=== PATIENT | male | born 1995 | race Caucasian/White ===

== ENCOUNTER 2017-07-25 11:42 | Emergency (ER) | payer OTHER ==
[2017-07-25 11:47] VITALS: BP 121/81; PULSE 90; RESP 16; TEMP 98.6; O2SAT 100
[2017-07-25] MEDS ORDERED: DEXAMETHASONE 4 MG TAB PO ONE (13:30)
[2017-07-25] MEDS ORDERED: IBUPROFEN 200 MG TAB PO ONE (13:30)
--- NOTE | 2017-07-25 13:49 | EDPHY ---
H & P Time Seen by Provider: 07/25/17 13:45 HPI/ROS: HPI: This is a 21-year-old male who presents with Chief Complaint:Sore throat Location: Throat Quality: Sore Duration: 4 days Signs and Symptoms: no Fever, no chills, no cough, no neck stiffness, + discomfort with swallowing, no runny nose, no abdominal pain, no nausea vomiting Timing: Sudden Severity: Moderate Context: This is a college student that presents with 4 days of sore throat accompanied by fatigue and discomfort with swallowing. Still able to drink fluids and soft. Denies any exposure to strep. Modifying Factors: Has not tried any [id number] medications Comment: ROS: Constitutional: No fever, no chills, no weight loss Eyes: No blurred vision Respiratory: No shortness of breath, no cough Cardiovascular: No chest pain Gastrointestinal: No nausea, no vomiting no diarrhea Genitourinary: No dysuria Extremities: No myalgias Neurologic: No weakness, no numbness Skin: No rashes Hematologic: No bruising, no bleeding MEDICAL/SURGICAL HISTORY: generally healthy. Leg fracture. Social History: College student. Smoking Status: Former smoker Physical Exam: CONSTITUTIONAL: Ill-appearing white teenage male, awake and alert, no obvious distress HEENT: Atraumatic and normocephalic, PERRL, EOMI. Tympanic membranes clear. Oropharynx clear, tonsils 2+ beefy red; no exudate; uvula midline and moist pink mucosa. Airway patent. + Spotty cervical lymphadenopathy. No meningismus. Cardiovascular: Normal S1/S2, regular rate, regular rhythm, without murmur rub or gallop. PULMONARY/CHEST: Symmetrical and nontender. Clear to auscultation bilaterally Good air movement. No accessory muscle usage. ABDOMEN: Soft, nondistended, nontender, no rebound, no guarding, no peritoneal signs, no masses or organomegaly. No CVAT. EXTREMITIES: 2/2 pulses, no deformities, no clubbing, no cyanosis or edema. NEUROLOGICAL: no focal neuro deficits. GCS 15. Speech clear. SKIN: Warm and dry, no erythema. no rash. Good capillary refill. Constitutional: Initial Vital Signs Temperature (C) 37 C 07/25/17 11:45 Heart Rate 90 07/25/17 11:45 Respiratory Rate 16 07/25/17 11:45 Blood Pressure 121/81 H 07/25/17 11:45 O2 Sat (%) 100 07/25/17 11:45 Allergies/Adverse Reactions: No Known Allergies Allergy (Unverified 07/25/17 11:47) Medical Decision Making ED Course/Re-evaluation: Strep test, mono, oral medications ordered No signs of tonsillar abscess/meningitis/airway compromise/Ludwigs angina/OM Given p.o. Decadron and p.o. ibuprofen [place] and strep were both negative; suspect viral Advised to continue supportive care Differential Diagnosis: Differential diagnosis includes but is not limited to viral pharyngitis, strep pharyngitis, meningitis, infectious mononucleosis, Upper respiratory infection - Data Points Laboratory Results: 07/25/17 07/25/17 07/25/17 Unknown 14:02 14:02 Monoscreen NEGATIVE (NEGATIVE) Group A Strep Screen NEGATIVE (NEGATIVE) Group A Strep DNA Pending Medications Given: Discontinued Medications Dexamethasone (Decadron) 4 mg PO EDNOW ONE Stop: 07/25/17 13:31 Last Admin: 07/25/17 14:00 Dose: 4 mg Ibuprofen (Motrin) 800 mg PO EDNOW ONE Stop: 07/25/17 13:31 Last Admin: 07/25/17 14:00 Dose: 800 mg Departure - Departure Disposition: Home, Routine, Self-Care Clinical Impression: Viral pharyngitis Condition: Good Instructions: Pharyngitis (ED) Additional Instructions: You do not have strep or mononucleosis. You have a viral illness. Continued to drink 6-8 glasses of water daily, perform salt water gargles several times a day for throat discomfort. He may purchase [id number] Chloraseptic spray for sore throat. Take 600-800 mg of ibuprofen with food 3 times a day as needed for pain, fever. Referrals: [facility],. [Clinic] - 3-4 days, if not improved
== END 2017-07-25 14:53 | disposition home or self-care (01) ==
DX: J02.8 Acute pharyngitis due to other specified organisms (principal); B97.89 Other viral agents as the cause of diseases classified elsewhere; Z87.891 Personal history of nicotine dependence